=== PATIENT | female | born 1975 | race Caucasian/White ===

== ENCOUNTER 2016-09-02 23:18 | Emergency (ER) | payer MEDICAID ==
[~2016-09-02] VITALS: Ht 160 cm; Wt 74.5 kg
[2016-09-02 23:29] VITALS: Ht 160 cm; Wt 74.5 kg
[2016-09-03] MEDS ORDERED: PRED20TA PO (03:21)
[2016-09-03] MEDS ORDERED: ALBU18HF INHALATION (03:21)
[2016-09-03] MEDS ORDERED: ALBU2.5V3 NEB (03:22)
[2016-09-03 03:36] VITALS: BP 137/75; PULSE 59; RESP 20; TEMP 98
--- NOTE | 2016-09-03 03:56 | ERD ---
ER Documentation Chief Complaint Date/Time DATE: 09/03/16 TIME: 03:54 Chief Complaint cough x 4 days HPI This patient is a 40-year-old female with history of asthma presenting to the emergency department for cough ongoing for the past 4 days. Additionally the patient has some slight shortness of breath only at nighttime. The patient takes Ventolin inhaler as needed for asthma symptoms as well as an albuterol medication nebulizer. The patient takes no other medications for asthma. She states she ran out of her albuterol medication nebulizer vial refills. The patient denies fevers, chills, shortness of breath during the day, nausea, vomiting, diarrhea, or other symptoms at this time. ROS All systems reviewed and are negative except as per history of present illness. Medications Home Meds Active Scripts Albuterol Sulfate* (Albuterol Sulfate* Neb) 0.083%-3 Ml Neb, 2.5 MG NEB Q4 Y for SHORTNESS OF BREATH, #30 EA Prov:BETHANIE RUIZ PA-C 09/03/16 Albuterol Sulfate* (Ventolin HFA*) 18 Gm Hfa.aer.ad, 2 PUFF INHALATION Q4H, #1 INHALER Prov:BETHANIE RUIZ PA-C 09/03/16 Prednisone* (Prednisone*) 20 Mg Tab, 40 MG PO DAILY for 5 Days, #10 TAB Prov:BETHANIE RUIZ PA-C 09/03/16 Reported Medications [None] No Conflict Check 05/10/10 Allergies Allergies: Coded Allergies: No Known Allergy (Verified Allergy, Mild, 02/06/10) PMhx/Soc History of Surgery: No Anesthesia Reaction: No Hx Neurological Disorder: No Hx Respiratory Disorders: Yes (asthma) Hx Cardiac Disorders: No Hx Psychiatric Problems: No Hx Miscellaneous Medical Probl: No Hx Alcohol Use: No Hx Substance Use: No Hx Tobacco Use: No Smoking Status: Never smoker FmHx Noncontributory for chief complaint. Physical Exam Vitals Vital Signs Date Time Temp Pulse Resp B/P Pulse Ox O2 Delivery O2 Flow Rate FiO2 09/03/16 03:36 98.0 59 20 137/75 98 Room Air 09/02/16 23:29 98.3 72 20 152/80 98 Physical Exam Const: The patient is resting comfortably in no acute distress. Head: Atraumatic Eyes: Normal Conjunctiva ENT: Normal External Ears, Nose and Mouth. Neck: Full range of motion..~ No meningismus. Resp: There is mild inspiratory wheezing to bilateral upper lung grover. There is no rhonchi. There are no crackles. There are no signs of respiratory distress. Cardio: Regular rate and rhythm, no murmurs Abd: Soft, non tender, non distended. Normal bowel sounds Skin: No petechiae or rashes Back: No midline or flank tenderness Ext: No cyanosis, or edema Neur: Awake and alert Psych: Normal Mood and Affect Procedures/MDM 40-year-old female presents secondary to complaints of cough ongoing for the past 4 days. On physical examination the patient's vitals are within normal limits. O2 saturation is 98% on room air. There are no signs of respiratory distress. There is mild inspiratory wheezing to bilateral upper lung grover. I believe the patient is having an asthma exacerbation which is not severe currently. The patient is stable for outpatient management with a prescription for Ventolin inhaler, refill of albuterol vials for the medication nebulizer and 5 days course of prednisone. The patient understands and agrees with the discharge plan and diagnosis. All questions and concerns of been addressed. The patient is hemodynamically stable prior to discharge and her pulse ox remained at 98% during her ED course. I doubt asthma exacerbation requiring admission, pneumothorax, bronchitis, pneumonia, pulmonary embolism, or other emergent conditions at this time. The patient is stable for outpatient management and should follow-up with her primary care physician as soon as possible. The patient is to return to the ER immediately for any new or worsening symptoms. Departure Diagnosis: Primary Impression: Asthma Condition: Fair Patient Instructions: Asthma, Asthma, Acute (Adult) [facility]: [facility] Usted se alvarez hecho un examen mdico de control que le indica que no est en sherri condicin que requiera tratamiento urgente en el Departamento de Emergencia. Un estudio ms profundo y el tratamiento de law condicin pueden esperar sin ningn riesgo hasta que usted sea atendida/o en el consultorio de law mdico o sherri cl polly. Es responsabilidad suya arreglar sherri wan para el seguimiento del shabana. MANEJO DE CONDICIONES NO URGENTES EN EL FUTURO 1) Si usted tiene un mdico de atencin primaria: Usted debera llamar a law mdico de atencin primaria antes de venir al departamento de emergencia. Despus de las horas de consultorio, law doctor o law asociado/a est disponible por telfono. El mdico o enfermero de priscila en el servicio telefnico puede asesorarle por daisy medio para atender el problema, o shabana contrario se puede programar sherri wan. 2) Si usted no tiene un mdico de atencin primaria: Llame al mdico o clnica de referencia que aparece abajo josh las horas de consultorio para hacer sherri wan para que le vean. CLINICAS: [place] [id number] [phone] [facility]., [facility] [phone] [facility]. [facility] [phone] [facility] [facility] [phone] [facility]. [place] [id number] [phone] [facility]. [phone] [address] Additional Instructions: No mas mejor en 2-3 barriga, regresar. Mas peor en 24 horas, regresear rapidamente. Ir a doctor primario in 5-7 barriga. Usar instrucciones cuando hung medicamento. BETHANIE RUIZ PA-C Sep 03, 2016 03:56
== END 2016-09-03 03:38 | disposition home or self-care (01) ==
LOC: FTE 23:18
DX: J45.901 Unspecified asthma with (acute) exacerbation (principal)
CPT/HCPCS: 99284

== ENCOUNTER 2016-12-05 15:14 | Emergency (ER) | payer MEDICAID ==
[~2016-12-05] VITALS: Ht 162.6 cm; Wt 77.5 kg
[~2016-12-05 15:14] MED LIST: ALBU18HF INHALATION; ALBU2.5V3 NEB; PRED20TA PO
[2016-12-05 15:17] VITALS: Ht 162.6 cm; Wt 77.5 kg
--- NOTE | 2016-12-05 15:42 | ERD ---
ER Documentation Chief Complaint Date/Time DATE: 12/05/16 TIME: 15:34 Chief Complaint LEFT ANKLE, SWOLLEN, PAINFULL AND DISCOLORED HPI 40-year-old female presented emergency department for left lower ankle injury that happened last Sunday. Patient stated that she was walking, tripped, fell , landed on her left ankle, rolled it. Came today to the emergency department for increased swelling, pain, discoloration. Patient also stated that she had her lower extremity massage yesterday that might have worsened her injury. Requests x-rays of her left lower extremities. Denies headache, loss of consciousness, dizziness, blurry vision, changes in vision, photophobia, facial pain, ear pain, throat pain, difficulty swallowing, neck pain, shoulder pain, chest pain, cough, hemoptysis, abdominal pain, back pain, loss of appetite, nausea, vomiting, hematochezia, diarrhea, constipation, urinary symptoms, , the possibility of being , bladder and bowel incontinences, numbness or tingling sensation, difficulty walking, recent travel, recent exposure to illness, recent antibiotic use in the last 3 months, fever, chills. Allergy: No known drug allergies. PMH: Denies. Family medical history: Noncontributory. AO LMP: "2 weeks ago." Medications: Denies. Surgery: Denies. Primary Social History: Not working at this time. Denies smoking, use of alcohol, use of illegal drugs. ROS All systems reviewed and are negative except as per history of present illness. Medications Home Meds Active Scripts Albuterol Sulfate* (Albuterol Sulfate* Neb) 0.083%-3 Ml Neb, 2.5 MG NEB Q4 Y for SHORTNESS OF BREATH, #30 EA Prov:BETHANIE RUIZ PA-C 09/03/16 Albuterol Sulfate* (Ventolin HFA*) 18 Gm Hfa.aer.ad, 2 PUFF INHALATION Q4H, #1 INHALER Prov:BETHANIE RUIZ PA-C 09/03/16 Prednisone* (Prednisone*) 20 Mg Tab, 40 MG PO DAILY for 5 Days, #10 TAB Prov:BETHANIE RUIZ PA-C 09/03/16 Reported Medications [None] No Conflict Check 05/10/10 Allergies Allergies: Coded Allergies: No Known Allergy (Verified , 12/05/16) PMhx/Soc History of Surgery: No Anesthesia Reaction: No Hx Neurological Disorder: No Hx Respiratory Disorders: Yes (asthma) Hx Cardiac Disorders: No Hx Psychiatric Problems: No Hx Miscellaneous Medical Probl: No Hx Alcohol Use: No Hx Substance Use: No Hx Tobacco Use: No Physical Exam Vitals Vital Signs Date Time Temp Pulse Resp B/P Pulse Ox O2 Delivery O2 Flow Rate FiO2 12/05/16 15:17 98.5 65 20 147/88 99 Physical Exam CONSTITUTIONAL: Well-appearing; well-nourished; in no apparent distress. HEAD: Normocephalic; atraumatic. EYES: Conjunctiva clear, sclera non-icteric, EOM intact. PERRL Ears: Hearing intact. EACs clear, TMs non-bulging, non-inflamed, translucent & mobile, ossicles normal appearance, No obstructions, no erythema, no discharges Nose: No obstructions. No polyps. No external lesions. Mucosa non-inflamed. No external lesions, septum and turbinates normal. No rhinorrhea. No discharges. Frontal sinus is non-tender to palpation. Maxillary sinus is non-tender to palpation. MOUTH: Moist mucous membranes, no lesion, no obstructions, no vesicles, no thrush, patent airway Throat: Uvula in midline. Right tonsil is +1 with no erythema, no exudate. Left tonsil is +1 with no erythema, no exudate. Tolerating secretions well. Good gag reflex. Patent airway. Neck: Supple, without lesions, bruits, or adenopathy. No mass. Thyroid non- enlarged and non-tender to palpation. CHEST: Symmetrical chest. Respirations even and not labored. No retractions noted. CARDIOVASCULAR: Normal S1, S2. RRR. No murmurs, gallops. RESPIRATORY: Normal chest excursion with respiration; breath sounds clear and equal bilaterally; no wheezes, rhonchi, or rales. Breathing even and unlabored. Speaking in clear, full, and complete sentences w/ ease. ABDOMEN: Normal bowel sounds normal. Soft, round, non-distended, non-guarding, no tenderness, no rebound, no organomegaly, no masses, no pulsating abdominal mass. No hernia. No peritoneal signs. : No CVA tenderness. BACK: Symmetrical shoulder. Spine is midline without deformity, tenderness. No evidence of trauma or deformity. PELVIS: Stable pelvis. No evidence of trauma or deformity. MUSCULOSKELETAL: Normal gait and station. No misalignment, asymmetry, crepitation, defects, tenderness, masses, effusions, decreased range of motion, instability, atrophy or abnormal strength or tone in the head, neck, spine, ribs , pelvis or extremities except left distal tibia has discoloration/ecchymosis left ankle. Swelling and discoloration/ecchymosis medially and laterally. Left foot has swelling and tenderness with ecchymosis/discoloration the superior aspect. Pedal pulses present. Able to move left toes. No neurovascular deficits. Left knee is unremarkable. Bilateral hips are unremarkable. Right knee/ankle/foot are unremarkable. C-spine/T-spine/L-spine is good and full range of motion without swelling/tenderness/deformity. No calf tenderness. NEUROVASCULAR: Distal pulses are present. Pedal pulse are present, equal, and normal. Capillary refills are < 2 seconds. NEUROLOGIC: Alert and oriented x4. Speaks full and clear sentences. Sensation to pain, touch, and proprioception normal. Grossly unremarkable. No neurologic deficits. Romberg test is negative. PSYCHOLOGICAL: The patients mood and manner are appropriate. No hallucinations , delusions. Not SI. Not HI. Has the capacity to decide for self SKIN: Normal for age and ethnicity; warm; dry; good turgor; no apparent lesions or exudates. No rashes, hives, discoloration. Intact. Results 24 hrs Current Medications Medications (Trade) Dose Ordered Sig/Tez Route PRN Reason Start Time Stop Time Status Last Admin Dose Admin Acetaminophen/ Hydrocodone Bitart (Wolcott (5/325)) 1 tab ONCE ONCE PO 12/05/16 16:00 12/05/16 16:01 DC 12/05/16 15:36 Procedures/MDM Examination: Please see physical examination. Disease process, medical treatment was explained to the patient and family member. They verbalized understanding and agreed with the diagnostic tests, medical treatment, and follow-up care. Radiology: X-ray of the left tibia and fibula Findings: There is normal mineralization and alignment. No fracture or osseous lesion is identified. Mild diffuse soft tissue swelling is present. There is no evidence of radiopaque foreign body. Impression: Mild soft tissue swelling without acute osseous abnormality involving the left tibia and fibula. X-ray left ankle Findings: There is normal mineralization and alignment. No fracture or osseous lesion is identified. The ankle mortise and talar dome are intact. Severe soft tissue swelling is present overlying the malleoli. There is no evidence for a radiopaque foreign body. Impression: Severe soft tissue swelling without evidence of acute osseous abnormality involving the left ankle. X-ray left foot Findings: Mineralization is within normal limits. No fracture or osseous lesion is identified. There is no evidence for dislocation. The metatarsal phalangeal, interphalangeal and mild tarsal joint spaces are preserved. Mild diffuse soft tissue swelling is present. There is no evidence for radiopaque foreign body. Impression: Soft tissue swelling without evidence of acute osseous abnormality involving the left foot. Treatment: Wolcott. Umair wrap. No neurovascular deficits prior to and after the application of Umair wrap. Re-evaluation: Denies headache, dizziness, blurry vision, neck pain, shoulder pain, chest pain, back pain, abdominal pain, nausea, vomiting. No episode of emesis in the emergency department. Alert and oriented 4. Speaks full and clear sentences. Respirations even and unlabored. Lung sounds clear to auscultation. Alert and oriented 4. Speaks full and clear sentences. Respirations even and unlabored. Lung sounds clear to auscultation. No neurovascular deficits. No neurological deficits. Consultation: None. Differential diagnosis: Fracture versus dislocation versus displacement versus contusion versus sprain Medical decision makin-year-old female presented emergency department for left lower ankle injury that happened last Sunday. Patient stated that she was walking, tripped, fell, landed on her left ankle, rolled it. Came today to the emergency department for increased swelling, pain, discoloration. Patient also stated that she had her lower extremity massage yesterday that might have worsened her injury. Requests x-rays of her left lower extremities. Patient's complaint, patient's history about her complaint, patient's presentation, my physical findings, my diagnostic test results, my reevaluation are consistent with my final diagnosis of ankle sprain. Medications prescribed are the following: Wolcott. Motrin. Patient and family member are made aware of the side effects and adverse reactions of the medications prescribed. Instructed on when to seek emergent and medical attention in case allergic/anaphylactic reactions or severe side effects and or adverse reactions to medications. Patient and family member verbalized understanding. Patient instructed Instructed to follow-up with his PCP in 24-48 hours. Follow-up with an orthopedic doctor in the next 24-48 hours. Instructed to Call 911 for chest pain, shortness of breath. Advised to come back here in ED as soon as possible for severity of symptoms which includes but not limited to: any new symptoms; shortness of breath/difficulty of breathing; cardiovascular changes; severe gastrointestinal symptoms; signs and symptoms of bleeding and or infection; signs of compartment syndrome/neurovascular changes; neurological changes/deficits. Patient and family member verbalized understanding. Upon discharge, patient is alert and oriented x 4, speaks full and clear sentences, denies pain, has no neurological deficits, has no neurovascular deficits, difficulty of breathing. Breathing even and unlabored. Lung sounds are clear to auscultation. Not in distress. Appears comfortable. Ambulatory with steady gait. Appears satisfied with care provided here in ED. Departure Diagnosis: Primary Impression: Ankle sprain Condition: Good Additional Instructions: Instructed to follow-up with his PCP in 24-48 hours. Follow-up with an orthopedic doctor in the next 24-48 hours. Instructed to Call 911 for chest pain, shortness of breath. Advised to come back here in ED as soon as possible for severity of symptoms which includes but not limited to: any new symptoms; shortness of breath/difficulty of breathing; cardiovascular changes; severe gastrointestinal symptoms; signs and symptoms of bleeding and or infection; signs of compartment syndrome/neurovascular changes; neurological changes/deficits. Patient and family member verbalized understanding. NYDIA ROMERO Dec 05, 2016 15:42
[2016-12-05] MEDS ORDERED: HYDROCODONE/APAP (5/325) TAB PO ONE (16:00)
--- NOTE | 2016-12-05 16:10 | RADRPT ---
PROCEDURE: XR left ankle. CLINICAL INDICATION: Injury with lateral left ankle pain TECHNIQUE: AP , oblique and lateral views of the left ankle were performed. COMPARISON: None. FINDINGS: There is normal mineralization and alignment. No fracture or osseous lesion is identified. The ankle mortis and talar dome are intact. Severe soft tissue swelling is present overlying the malleoli. Th ere is no evidence for a radiopaque foreign body. RPTAT:HJJR IMPRESSION: Severe soft tissue swelling without evidence of acute osseous abnormality involving the left ankle. Physician Layla Date Time Electronically viewed and signed by Physician Layla on 12/05/2016 16:10 JR/
--- NOTE | 2016-12-05 16:11 | RADRPT ---
PROCEDURE: XR left foot. CLINICAL INDICATION: Injury with the lateral left foot pain TECHNIQUE: AP, lateral and oblique views of the left foot were obtained. COMPARISON: None. FINDINGS: Mineralization is within normal limits. No fracture or osseous lesion is identified. There is no e vidence for dislocation. The metatarsophalangeal, interphalangeal, and mid tarsal joint spaces are preserved. Mild diffuse soft tissue swelling is present. There is no evidence for a radiopaque fore ign body. IMPRESSION: Soft tissue swelling without evidence of acute osseous abnormality involving the left foot. RPTAT:HJJR Physician Layla Date Time Electronically viewed and signed by Physician Layla on 12/05/2016 16:11 /
--- NOTE | 2016-12-05 16:12 | RADRPT ---
PROCEDURE: XR Tibia and Fibula. CLINICAL INDICATION: Injury with generalized left leg pain TECHNIQUE: AP and lateral of the left tibia and fibula were obtained. COMPARISON: None available FINDINGS: There is normal mineralization and alignment. No fracture or osseous lesion is identified. Mild diff use soft tissue swelling is present. There is no evidence of radiopaque foreign body. RPTAT:HJJR IMPRESSION: Mild soft tissue swelling without acute osseous abnormality involving the left tibia and fibula. Physician Layla Date Time Electronically viewed and signed by Physician Layla on 12/05/2016 16:11 JR/
[2016-12-05] MEDS ORDERED: IBUP800T25 PO (16:41)
[2016-12-05] MEDS ORDERED: HYDR-906 PO (16:41)
== END 2016-12-05 17:02 | disposition home or self-care (01) ==
LOC: FTE 15:14
DX: S93.402A Sprain of unspecified ligament of left ankle, initial encounter (principal); J45.909 Unspecified asthma, uncomplicated; W01.0XXA Fall on same level from slipping, tripping and stumbling without subsequent striking against object, initial encounter; Y92.9 Unspecified place or not applicable
CPT/HCPCS: 73590; 73610; 73630; Z7502; Z7610